=== PATIENT | female | born 1950 | race African-American/Black ===

== ENCOUNTER 2020-08-07 12:50 | Day surgery (SDC) | payer OTHER ==
[~2020-08-07] VITALS: Ht 162.6 cm; Wt 95.2 kg
[2020-08-07 12:58] VITALS: BP 148/77
[2020-08-07 16:37] VITALS: BP 142/87
== END 2020-08-07 16:35 ==
LOC: GI 12:50
PROVIDERS: ATTEND Internal Medicine Gastroenterology
DX: Z12.11 Encounter for screening for malignant neoplasm of colon (principal); D12.2 Benign neoplasm of ascending colon; K57.30 Diverticulosis of large intestine without perforation or abscess without bleeding; Z79.82 Long term (current) use of aspirin; Z80.0 Family history of malignant neoplasm of digestive organs
CPT/HCPCS: 45378; J1200; J1610; J2250; J2310; J3010; J3490